=== PATIENT | male | born 1985 | race Caucasian/White ===

== ENCOUNTER 2020-07-10 11:55 | Emergency (ER) | payer OTHER, SELFPAY ==
--- NOTE | ~2020-07-10 | XR_ITS ---
EXAMINATION: XR ankle RT min 3V INDICATION: Right ankle pain TECHNIQUE: Four views of the right ankle are obtained. COMPARISON: None available FINDINGS: Ankle soft tissue swelling is present. Bone alignment is normal. No fracture is identified. The ankle mortise is intact. IMPRESSION: 1. Ankle soft tissue swelling without acute osseous abnormality identified. Reviewed, dictated and finalized at location A. WORKER
[2020-07-10 12:14] VITALS: BP 143/89; PULSE 87; RESP 16; TEMP 36.9; O2SAT 99
--- NOTE | 2020-07-10 12:54 | ED.EXTPRO ---
HPI - Extremity Problem General Chief complaint: Extremity Injury, Lower Stated complaint: Right ankle Pain Time Seen by Provider: 07/10/20 12:45 Source: patient and RN notes reviewed Mode of arrival: ambulatory Limitations: no limitations History of Present Illness HPI Narrative: Patient presents today complaining of right ankle pain x4 days that has been worsening since onset. Denies injury or trauma. States the pain started out laterally and is now anterior. Currently rates his pain 8/10 with ambulation. He has been using crutches. He has been using Aleve and ice as well as elevation without much relief of symptoms. Denies numbness or tingling in the leg or foot. Related Data Home Medications Medication Instructions Recorded Confirmed No Home Medications 07/10/20 07/10/20 Allergies Allergy/AdvReac Type Severity Reaction Status Date / Time No Known Allergies Allergy Verified 07/10/20 12:55 Review of Systems Review of Systems: Narrative: CONSTITUTIONAL: Denies body aches, fever, chills, or sweats. EYES: Denies visual changes, redness, or discharge. ENT: Denies rhinorrhea, congestion, sore throat, or otalgia. CARDIOVASCULAR: Denies chest pain, palpitations, or edema. RESPIRATORY: Denies cough or dyspnea. GASTROINTESTINAL: Denies abdominal pain, nausea, vomiting, or diarrhea. GENITOURINARY: Denies dysuria or hematuria. SKIN: Denies rash, itching, or wounds. MUSCULOSKELETAL: Denies back pain, or myalgia.+ Right ankle pain and swelling NEUROLOGIC: Denies headache, numbness, tingling, or weakness. PSYCH: Denies depression or anxiety. PMFSH Comments At time of signature, I have reviewed and agree with nursing past medical, surgical, social and family history unless otherwise noted. Please see nursing chart for further information. There is no relevant family history pertinent to the presenting complaint Exam Narrative: Exam Narrative: GENERAL: Well-appearing, well-nourished, and in no acute distress. HEAD: Normocephalic, atraumatic. EYES: EOMI. No redness or drainage. Conjunctivae normal. ENT: Mucous membranes pink and moist. NECK: Normal AROM. CHEST: No respiratory distress. EXTREMITIES: Right ankle: Erythema about the ankle. Mild to moderate edema bilaterally. Mild tenderness about the ankle, but no point tenderness. No bony tenderness. Distal sensation intact. Capillary refill normal. Pedal pulse normal. Somewhat decreased range of motion of the ankle due to swelling. SKIN: Warm, dry, no rash. Capillary refill normal. Normal skin turgor. NEURO: No focal deficits. Alert and oriented x3. Gait steady. PSYCH: Normal affect. No signs of depression or anxiety. Course Vital Signs Vital signs: Vital Signs Temperature 98.5 F 07/10/20 12:14 Pulse Rate 87 07/10/20 12:14 Respiratory Rate 16 07/10/20 12:14 Blood Pressure 143/89 H 07/10/20 12:14 Pulse Oximetry 99 07/10/20 12:14 Temperature 98.5 F 07/10/20 12:14 Pulse Rate 87 07/10/20 12:14 Respiratory Rate 16 07/10/20 12:14 Blood Pressure 143/89 H 07/10/20 12:14 Pulse Oximetry 99 07/10/20 12:14 Reviewed. Pt has been instructed to follow up with his PCP regarding his elevated blood pressure today. MDM - Extremity (Nontraumatic) Differential Diagnosis Differential diagnosis: Likely gout, cellulitis, superficial thrombophlebitis, lower extremity edema and other (Ankle sprain, fracture) Critical Care Time Critical Care Time Critical Care Time: No Discharge Plan Discharge Clinical Impression: Gout Qualifiers: Gout site: ankle Gout etiology: unspecified cause Chronicity: acute Laterality: right Qualified Code(s): M10.9 - Gout, unspecified Patient Disposition: Home, Self-Care Condition: Stable Instructions: Low Purine Diet (ED), Gout (ED) Additional Instructions: Your symptoms are likely related to gout. Please take all medications as prescribed. Rest and stay hydrated. Follow-up with your doctor
== END 2020-07-10 12:59 | disposition home or self-care (01) ==
PROVIDERS: Emergency Provider Nurse Practitioner
DX: M10.9 Gout, unspecified (principal)
CPT/HCPCS: 73610; 99203; G0463

== ENCOUNTER 2020-12-04 14:59 | Emergency (ER) | payer OTHER, SELFPAY ==
--- NOTE | 2020-12-04 15:12 | ED.GENADULT ---
HPI - General Adult General Chief complaint: Upper Respiratory Infection Stated complaint: cold symptoms/loss of taste and smell Time Seen by Provider: 12/04/20 15:12 Source: patient Mode of arrival: ambulatory Limitations: no limitations History of Present Illness HPI narrative: 35-year-old male patient presents to the [facility] with complaints of cold symptoms for the past 2 days. Patient states he has had runny nose, congestion and sore throat. Patient states today he noticed that he lost his sense of smell smell about an hour ago. Patient states he has been taking [id number] cold medications. Denies becoming in contact with anybody with Covid that he is aware of. Patient denies having Covid within the last 3 months denies getting any vaccines. Denies any chest pain or shortness of breath. Related Data Home Medications Medication Instructions Recorded Confirmed No Home Medications 07/10/20 07/10/20 Allergies Allergy/AdvReac Type Severity Reaction Status Date / Time No Known Allergies Allergy Verified 12/04/20 15:15 Review of Systems Review of Systems: Narrative: CONSTITUTIONAL: Denies fever, chills, or sweats. EYES: Denies visual changes, redness, or discharge. ENT: Positive rhinorrhea, congestion, sore throat, denies otalgia. Loss of sense of smell x1 hour CARDIOVASCULAR: Denies chest pain, palpitations, or edema. RESPIRATORY: Denies cough or dyspnea. GASTROINTESTINAL: Denies abdominal pain, nausea, vomiting, or diarrhea. GENITOURINARY: Denies dysuria or hematuria. SKIN: Denies rash or itching. MUSCULOSKELETAL: Denies back pain, joint pain, or myalgia. NEUROLOGIC: Denies headache, numbness, or weakness. PSYCHIATRIC: Denies anxiety or depression. PMFSH Comments At the time of my signature I agree with nursing past medical history, surgical, social, and family history. There is no relevant family history pertinent to the presenting complaint. Exam Narrative: Exam Narrative: GENERAL: Well-appearing, well-nourished, and in no acute distress. HEAD: Normocephalic, atraumatic. EYES: PERRLA and EOMI. ENT: Nares with erythema and edema noted bilaterally, no rhinorrhea or epistaxis. Mucous membranes moist. Posterior pharynx with no erythema, tonsillar Tosin, exudates or lesions present. Bilateral TMs are clear no erythema or foreign bodies in the canal. NECK: Supple. No lymphadenopathy CHEST: Clear to auscultation. No respiratory distress. Patient able talk clear complete sentences. No tripoding noted. HEART: Regular rate and rhythm. No murmur heard. Normal peripheral pulses. ABDOMEN: Soft, nontender, nondistended, normal active bowel sounds. EXTREMITIES: Normal range of motion. No edema. SKIN: Warm, dry, no rash. NEURO: No focal deficits. Alert and oriented x3. Course Reevaluation(s) Reevaluation #1: Reevaluated patient and notified him that his rapid strep today is negative. We did go ahead and send a Covid PCR to the lab and we should get results the next 24 to 48 hours. Patient is aware the plan of care. Discussed with him he can take [id number] medications however if he has worsening symptoms such as severe chest pain or shortness of breath he should go to the hospital otherwise is very important that he continue to isolate for at least 10 days from the onset of symptoms despite any negative or positive test results. Patient verbalized understanding denies any other questions or concerns at this time. Date: 12/04/20 Time: 15:53 Vital Signs Vital signs: Vital Signs Temperature 36.7 C 12/04/20 15:21 Pulse Rate 100 12/04/20 15:21 Respiratory Rate 16 12/04/20 15:21 Blood Pressure 135/98 H 12/04/20 15:21 Pulse Oximetry 98 12/04/20 15:21 Temperature 36.7 C 12/04/20 15:21 Pulse Rate 100 12/04/20 15:21 Respiratory Rate 16 12/04/20 15:21 Blood Pressure 135/98 H 12/04/20 15:21 Pulse Oximetry 98 12/04/20 15:21 Vital signs reviewed The patient has been informed
[2020-12-04 15:21] VITALS: BP 135/98; PULSE 100; RESP 16; TEMP 36.7; O2SAT 98
[2020-12-05 19:43] LABS: SARS-CoV-2 RNA PCR Negative
== END 2020-12-04 16:06 | disposition home or self-care (01) ==
PROVIDERS: Emergency Provider Nurse Practitioner Family
DX: J06.9 Acute upper respiratory infection, unspecified (principal); Z20.822 Contact with and (suspected) exposure to COVID-19; M10.9 Gout, unspecified
CPT/HCPCS: 87081; 87880; 99213; C9803; G0463; U0003; U0005